=== PATIENT | male | born 1980 | race Caucasian/White ===

== ENCOUNTER 2017-01-11 01:13 | Emergency (ER) | payer BC ==
[~2017-01-11] VITALS: Ht 185.4 cm; Wt 93.9 kg
[2017-01-11] MEDS ORDERED: NO MEDICATIONS (01:23)
== END 2017-01-11 01:56 | disposition home or self-care (01) ==
LOC: SED 01:13
DX: S91.341A Puncture wound with foreign body, right foot, initial encounter (principal); W25.XXXA Contact with sharp glass, initial encounter; Y92.009 Unspecified place in unspecified non-institutional (private) residence as the place of occurrence of the external cause
CPT/HCPCS: 99283